=== PATIENT | male | born 1970 | race Caucasian/White ===

== ENCOUNTER → 2021-02-07 | Outpatient (CLI) | payer BC ==
[~2021-02-07] MED LIST: BACTROBAN OINT22 GM EXT; FLOMAX0.4 MG PO; HYDROCODON-ACE1 EAC2 PO; KEFLEX CAP 500500 MG PO; LORTAB 7.5-3251 EACH PO; NORCO 5-325 TA1 EACH PO; ZOFRAN ODT 4 MG4 MG SL
[2021-02-07 08:34] LABS: HEMOGLOBIN 16.4 gm/dl (14.0-17.5); RED BLOOD COUNT 5.26 M/UL (4.20-5.50); WHITE BLOOD COUNT 14.5 K/UL (4.5-11.0)
[2021-02-07 09:24] LABS: BUN/CREATININE RATIO 15 (0-10)
[2021-02-08 08:13] LABS: VITAMIN D, 25-HYDROXY 28.8 ng/mL (30.0-100.0)
[2021-02-08 10:13] LABS: ESTRADIOL 14.4 pg/mL (7.6-42.6); FSH 4.5 mIU/mL (1.5-12.4); LUTEINIZING HORMONE(LH) 5.2 mIU/mL (1.7-8.6); PROLACTIN 12.8 ng/mL (4.0-15.2)
[2021-02-08 11:13] LABS: CORTISOL 7.7 ug/dL (.)
== END ==
LOC: LAB 08:07
PROVIDERS: Nurse Practitioner Family
DX: I10 Essential (primary) hypertension (principal); E78.5 Hyperlipidemia, unspecified; E55.9 Vitamin D deficiency, unspecified; E34.9 Endocrine disorder, unspecified; R86.1 Abnormal level of hormones in specimens from male genital organs
CPT/HCPCS: 36415; 80053; 80061; 81001; 82533; 82670; 83001; 83002; 84146; 84402; 84403; 84439; 84443; 85025